=== PATIENT | female | born 1955 | race Caucasian/White ===

== ENCOUNTER 2018-01-06 08:05 | Outpatient (CLI) | payer OTHER | END 2018-01-06 08:16 | disposition home or self-care (01) | LOC: MAMO-SONO 08:05 | DX: Z01.810 Encounter for preprocedural cardiovascular examination (principal); E03.8 Other specified hypothyroidism; E78.9 Disorder of lipoprotein metabolism, unspecified; I10 Essential (primary) hypertension ==

== ENCOUNTER 2020-07-23 09:54 | Outpatient (CLI) | payer OTHER | END 2020-07-23 10:03 | disposition HB | LOC: SONOGRAMA 09:54 | PROVIDERS: ATTEND Internal Medicine | DX: R10.84 Generalized abdominal pain (principal); R74.01 Elevation of levels of liver transaminase levels; E03.8 Other specified hypothyroidism; E78.89 Other lipoprotein metabolism disorders; I11.9 Hypertensive heart disease without heart failure ==

== ENCOUNTER 2020-10-27 09:00 | Outpatient (CLI) | payer OTHER | END 2020-10-27 09:07 | disposition home or self-care (01) | LOC: MAMO-SONO 09:00 | PROVIDERS: ATTEND Internal Medicine | DX: Z12.31 Encounter for screening mammogram for malignant neoplasm of breast (principal); N64.59 Other signs and symptoms in breast; E03.8 Other specified hypothyroidism; E78.89 Other lipoprotein metabolism disorders; I11.9 Hypertensive heart disease without heart failure; R74.8 Abnormal levels of other serum enzymes ==

== ENCOUNTER 2021-06-03 13:32 | Outpatient (CLI) | payer OTHER | END 2021-06-03 13:38 | disposition home or self-care (01) | LOC: NUCLEAR 13:32 | PROVIDERS: ATTEND Internal Medicine | DX: M81.0 Age-related osteoporosis without current pathological fracture (principal) ==

== ENCOUNTER 2022-05-04 08:31 | Outpatient (CLI) | payer OTHER | END 2022-05-04 08:56 | disposition home or self-care (01) | LOC: RAD 08:31 | PROVIDERS: ATTEND Internal Medicine | DX: Z12.31 Encounter for screening mammogram for malignant neoplasm of breast (principal); E03.9 Hypothyroidism, unspecified; E78.9 Disorder of lipoprotein metabolism, unspecified; I11.9 Hypertensive heart disease without heart failure; R74.01 Elevation of levels of liver transaminase levels; Z12.11 Encounter for screening for malignant neoplasm of colon; Z13.820 Encounter for screening for osteoporosis; N63.11 Unspecified lump in the right breast, upper outer quadrant; N63.12 Unspecified lump in the right breast, upper inner quadrant; N63.21 Unspecified lump in the left breast, upper outer quadrant ==

== ENCOUNTER 2023-01-03 09:03 | Outpatient (CLI) | payer OTHER | END 2023-01-03 09:06 | disposition home or self-care (01) | LOC: SONOGRAMA 09:03 | PROVIDERS: ATTEND Internal Medicine | DX: E03.4 Atrophy of thyroid (acquired) (principal); E03.9 Hypothyroidism, unspecified ==

== ENCOUNTER 2023-01-14 09:50 | Outpatient (CLI) | payer OTHER | END 2023-01-14 09:51 | disposition home or self-care (01) | LOC: NUCLEAR 09:50 | PROVIDERS: ATTEND Internal Medicine | DX: Z95.1 Presence of aortocoronary bypass graft (principal); G45.3 Amaurosis fugax; E78.9 Disorder of lipoprotein metabolism, unspecified ==

== ENCOUNTER 2023-05-20 08:52 | Outpatient (CLI) | payer OTHER | END 2023-05-20 08:56 | disposition home or self-care (01) | LOC: MRI 08:52 | PROVIDERS: ATTEND Internal Medicine | DX: M02.2 Postimmunization arthropathy (principal) | CPT/HCPCS: 73718 ==

== ENCOUNTER 2023-09-20 08:32 | Outpatient (CLI) | payer OTHER | END 2023-09-20 08:40 | disposition home or self-care (01) | LOC: MAMO-SONO 08:32 | PROVIDERS: ATTEND Internal Medicine | DX: Z12.31 Encounter for screening mammogram for malignant neoplasm of breast (principal) ==

== ENCOUNTER 2023-12-14 08:48 | Outpatient (CLI) | payer OTHER | END 2023-12-14 08:52 | disposition home or self-care (01) | LOC: RAD 08:48 | DX: R00.2 Palpitations (principal) ==

== ENCOUNTER → 2025-04-12 08:27 | Outpatient (CLI) | payer OTHER | END | disposition home or self-care (01) | LOC: SONOGRAMA 08:27 | PROVIDERS: ATTEND Internal Medicine | DX: E03.9 Hypothyroidism, unspecified (principal) ==